=== PATIENT | female | born 1955 | race Caucasian/White ===

== ENCOUNTER → 2016-10-24 | Outpatient (CLI) | payer OTHER ==
--- NOTE | 2016-10-24 10:19 | DX ---
Cervical spine, 3 views History: Follow up C5 through C7 fusion. Comparison: Cervical spine August 22, 2016. Findings: ACDF from C5 through C7 appears stable without evidence of loosening or hardware fracture. Intervertebral graft material at C5-C6 and C6-C7 appears stable. Trace retrolisthesis of C6 on C7 josesito ears increased since the comparison. Trace anterolisthesis of C7 on T1 is stable. Mild vertebral spon dylosis at C4-C5 and C7-T1 is stable. Impression: Trace retrolisthesis of C6 on C7, new since the comparison, with otherwise stable appeara nce of ACDF from C5 through C7.
== END ==
LOC: FIMAGING 09:28
PROVIDERS: ATTEND Orthopaedic Surgery Orthopaedic Surgery of the Spine
DX: M43.12 Spondylolisthesis, cervical region (principal); Z98.1 Arthrodesis status

== ENCOUNTER → 2016-12-26 | Outpatient (CLI) | payer OTHER | LOC: FIMAGING 09:08 | DX: Z12.31 Encounter for screening mammogram for malignant neoplasm of breast (principal) | CPT/HCPCS: G0202 ==

== ENCOUNTER → 2017-01-09 | Outpatient (CLI) | payer OTHER | LOC: FIMAGING 10:01 | PROVIDERS: ATTEND Family Medicine Sports Medicine | DX: G89.29 Other chronic pain (principal) ==

== ENCOUNTER → 2017-01-23 | Outpatient (CLI) | payer OTHER | LOC: FIMAGING 12:13 | PROVIDERS: ATTEND Orthopaedic Surgery Orthopaedic Surgery of the Spine | DX: Z09 Encounter for follow-up examination after completed treatment for conditions other than malignant neoplasm (principal); Z98.1 Arthrodesis status ==

== ENCOUNTER → 2018-05-27 | Outpatient (CLI) | payer OTHER | LOC: FIMAGING 09:33 | PROVIDERS: ATTEND Obstetrics & Gynecology | DX: Z12.31 Encounter for screening mammogram for malignant neoplasm of breast (principal) ==

== ENCOUNTER → 2018-09-28 | Outpatient (CLI) | payer OTHER | LOC: FIMAGING 09:09 → EEVIPCON 09:09 | PROVIDERS: ATTEND Family Medicine Sports Medicine | DX: M51.36 Other intervertebral disc degeneration, lumbar region (principal) ==